=== PATIENT | male | born 1975 | race Caucasian/White ===

== ENCOUNTER 2016-12-21 16:14 | Emergency (ER) | payer OTHER | END 2016-12-21 18:00 | disposition home or self-care (01) | LOC: ER1 16:14 | DX: S68.115A Complete traumatic metacarpophalangeal amputation of left ring finger, initial encounter (principal); I10 Essential (primary) hypertension; Z23 Encounter for immunization; Z88.0 Allergy status to penicillin; W26.8XXA Contact with other sharp object(s), not elsewhere classified, initial encounter; Y92.009 Unspecified place in unspecified non-institutional (private) residence as the place of occurrence of the external cause | CPT/HCPCS: 29130; 64450; 90471; 90714; 99283 ==